=== PATIENT | female | born 1985 | race Caucasian/White ===

== ENCOUNTER 2021-12-18 11:01 | Observation (INO) | payer OTHER, SELFPAY ==
[2021-12-18] VITALS (14 sets, daily range): BP systolic 111–126; BP diastolic 65–73; PULSE 85–100; TEMP 36.2; O2SAT 97–100; BMI 34.0
--- NOTE | 2021-12-18 11:46 | OBADM ---
This patient, Elza Ritchie, admitted to the OB room 115 for observation. Patient/family oriented to hospital policies and general routines including ID bracelet, bed and alarms, visiting hours, pain management, procedures, bathroom and other care routines, personal items, smoking policy, room service/diet, and visiting hours. Patient/Family are encouraged to report perceived risks to care and to ask questions if they do not understand what they are told or what they should do.
[2021-12-18] MEDS: FAMOTIDINE 20 MG TABLET PO (12:37)
--- NOTE | 2022-01-01 13:31 | PM.OBTRLD ---
OB - Triage/Final Diagnosis Visit Information Comments/Additional reasons for admission: I have assessed the risk for this patient, Elza Ritchie, and determined that she would benefit from observation care. Final Diagnosis (1) False labor: Code(s): O47.9 - False labor, unspecified Status: Acute
== END 2021-12-18 13:22 | disposition home or self-care (01) ==
PROVIDERS: Admitting Provider Obstetrics & Gynecology; Visit Provider Obstetrics & Gynecology
DX: O47.9 False labor, unspecified (principal); Z3A.00 Weeks of gestation of pregnancy not specified
CPT/HCPCS: A9270; G0378; G0379

== ENCOUNTER 2022-01-06 16:20 | Outpatient (RCR) | payer OTHER, SELFPAY ==
--- NOTE | ~2022-01-06 | US_ITS ---
EXAMINATION: US OB BPP wo non-stress DATE: 01/06/2022 18:33 INDICATION: Nonreactive stress test. TECHNIQUE: Real-time ultrasound of the pelvis was performed. COMPARISON: None. FINDINGS: There is a single living fetus in vertex presentation, longitudinal lie. The placenta is posterior. heart rate is 143 beats per minute (bpm). The amniotic fluid index is 15.1 cm, which is normal. ] Biophysical profile performed by the technologist: breathing (30 sec sustained breathing in 30 minutes): 2 out of 2 movement (3 gross body movements in 30 minutes: 2 out of 2 tone (one episode of epszcik-hmlfkhiap-wizpjog limb movement): 2 out of 2 Amniotic fluid pocket (2 cm): 2 out of 2 Total score: 8 out of 8 IMPRESSION: 1. Single living fetus in vertex presentation.] 2. Amniotic fluid index 15.1 cm. 3. Biophysical profile 8 out of 8. Reviewed, dictated and finalized at location K.
--- NOTE | 2022-01-06 17:26 | PC.NURSE ---
Dr. Aggarwal notified on admission and assessment. BPP ordered.
[2022-01-06 18:00] VITALS: BP 127/67; PULSE 96
== END 2022-02-21 14:51 | disposition home or self-care (01) ==
LOC: ANHOBOP 16:20
PROVIDERS: PCP Emergency Medicine; Visit Provider Obstetrics & Gynecology
DX: O26.893 Other specified pregnancy related conditions, third trimester (principal); Z3A.34 34 weeks gestation of pregnancy
CPT/HCPCS: 59025; 76819

== ENCOUNTER 2022-01-10 19:12 | Outpatient (CLI) | payer OTHER, SELFPAY ==
[2022-01-10 19:33] VITALS: BP 130/76; PULSE 93
[2022-01-10 19:45] VITALS: BP 127/75; PULSE 88
[2022-01-10 19:47] LABS: Basophils Percent Auto 0.2 % (0.2-1.2); Hematocrit 34.4 % (37.0-47.0); Hemoglobin 11.7 g/dL (12.0-15.0); Immature Granulocyte Absolute 0.05 K/mm3 (0.00-0.031); Immature Granulocyte Percent A 0.4 % (0-0.5); Lymphocytes Absolute Auto 4.01 K/mm3 (0.9-3.2); Lymphocytes Percent Auto 32.5 % (18.3-44.2); Mean Corpuscular Hemoglobin 28.3 pg (26-34); Mean Corpuscular Volume 83.3 fl (80-100); Mean Platelet Volume 8.8 fl (7.4-10.4); Monocytes Absolute Auto 0.8 K/mm3 (0.1-0.6); Monocytes Percent Auto 6.8 % (2.6-8.5); Neutrophils Absolute Auto 7.4 K/mm3 (1.3-6.7); Neutrophils Percent Auto 60.1 % (45.5-73.1); Platelet Count Result 293 k/mm3 (150-375); Red Blood Count 4.13 M/mm3 (4.2-5.4); Red Cell Distribution Width 13.5 % (11.5-14.5); White Blood Count 12.3 K/mm3 (4.5-10.0)
[2022-01-10 19:48] LABS: Appearance Urine Clear (Clear); Bilirubin Urine Negative (Negative); Blood Urine Negative (Negative); Color Urine Yellow (Yellow); Glucose Urine UA Negative (Negative); Ketones Urine Negative (Negative); Leukocyte Esterase Ur Negative LEU/UL (NEGATIVE); Nitrate Urine Negative (Negative); Protein Urine 1+ mg/dL (Negative); Specific Grav Ur >= 1.030 (1.001-1.035); Urobilinogen Urine 0.2 mg/dL (<2.0)
[2022-01-10 19:58] LABS: Bacteria Urine Trace /hpf; Calcium Oxalate Crystals Urine Present /hpf; Mucus Urine Heavy /lpf; Squamous Epithelial Cell Urine Occasional /hpf (Few)
[2022-01-10 19:59] LABS: Add Urine Microscopic? YES
[2022-01-10 20:00] VITALS: BP 123/70; PULSE 82
[2022-01-10 20:03] LABS: Alanine Aminotransferase 11 U/L (6-35); Albumin Level 3.3 g/dL (3.5-5.1); Alkaline Phosphatase 151 U/L (38-126); Anion Gap 6 mmol/L (8-16); Aspartate Amino Transferase 17 U/L (14-36); Bilirubin,Total 0.7 mg/dL (0.2-1.3); Blood Urea Nitrogen 5 mg/dL (7-17); Calcium 8.3 mg/dL (8.4-10.2); Carbon Dioxide 19 mmol/L (22-30); Chloride 108 mmol/L (98-107); Estimated Glomerular Filt Rate > 60; Glucose 87 mg/dL (65-110); Potassium 3.8 mmol/L (3.4-5.0); Sodium 133 mmol/L (137-145); Uric Acid 3.3 mg/dL (2.5-7.5)
[2022-01-10 20:15] VITALS: BP 131/75; PULSE 85
[2022-01-10] MEDS: diphenhydrAMINE HCl CAP 25 MG CAPSULE PO (21:04)
[2022-01-10] MEDS: METOCLOPRAMIDE HCL 10 MG TABLET PO (21:04)
[2022-01-11 00:01] LABS: Creatinine Urine 291.3 mg/dL
[2022-01-11 00:03] LABS: Total Protein Urine Random < 5 mg/dL; Ur Ttl Prot Creatinine Ratio < 0.02 mg/mg (0-0.20)
== END 2022-01-10 21:15 | disposition home or self-care (01) ==
LOC: ANHOBOP 19:16 → ANHOBPP 19:19
PROVIDERS: PCP Emergency Medicine; Visit Provider Obstetrics & Gynecology
DX: O13.9 Gestational [pregnancy-induced] hypertension without significant proteinuria, unspecified trimester (principal); Z3A.00 Weeks of gestation of pregnancy not specified
CPT/HCPCS: 36415; 80053; 81001; 82570; 84156; 84550; 85025; 87086; 99199; A9270

== ENCOUNTER 2022-02-10 13:56 | Outpatient (CLI) | payer OTHER, SELFPAY ==
[2022-02-10 14:15] LABS: Hemoglobin 11.6 g/dL (12.0-15.0); Mean Corpuscular HGB Conc 33.1 g/dl (32-36); Mean Corpuscular Hemoglobin 27.4 pg (26-34); Mean Corpuscular Volume 82.7 fl (80-100); Mean Platelet Volume 9.1 fl (7.4-10.4); Platelet Count Result 270 k/mm3 (150-375); Red Blood Count 4.23 M/mm3 (4.2-5.4); Red Cell Distribution Width 13.4 % (11.5-14.5); White Blood Count 9.9 K/mm3 (4.5-10.0)
[2022-02-11 06:12] LABS: Rapid Plasma Reagin Non-Reactive (NonReactive)
== END 2022-02-10 13:57 | disposition home or self-care (01) ==
LOC: ANHLAB 13:59
PROVIDERS: PCP Emergency Medicine; Visit Provider Obstetrics & Gynecology
DX: Z01.818 Encounter for other preprocedural examination (principal)
CPT/HCPCS: 36415; 85027; 86592; 86850; 86900; 86901

== ENCOUNTER 2022-02-11 05:35 | Inpatient (IN) | payer OTHER, SELFPAY ==
--- NOTE | 2022-02-04 14:57 | PC.NURSE ---
Verified with OR schedule and patient --C/S on 02/11/22 at 1200 Patient given requisition for lab draw on 02/10/22
--- NOTE | 2022-02-10 13:43 | WPDANESEPPF ---
Anes - Initial Pre Proc Eval Procedure: Operation Date: 02/11/22 12:00 Proposed Procedures p Repeat Section - Vinnie Coyne MD Date/Time: 02/10/22 13:43 Surgeon: Vinnie Coyne MD Pre Op Diagnosis: Repeat C Section/ Preadmit Patient Data Age: 36 Gender: F Height: Weight: Allergies Allergy/AdvReac Type Severity Reaction Status Date / Time morphine Allergy Mild SEVERE Verified 01/10/22 20:45 ITCHING AND RED RASH nitrofurantoin Allergy Unknown Rash Verified 01/10/22 20:45 [place] Allergy Mild Itching Uncoded 02/04/22 14:40 Dried Fruit Allergy Unknown Itching Uncoded 01/10/22 20:45 Home Medications Medication Instructions Recorded Confirmed Type calcium carbonate 200 mg calcium 200 mg PO QID PRN Heartburn 12/18/21 01/10/22 History (500 mg) chewable tablet (Tums) vit no.95-ferrous 1 tablet PO DAILY 12/18/21 01/10/22 History fumarate 28 mg-folic acid 800 mcg tablet () propylthiouracil 50 mg tablet 100 mg PO DAILY 12/18/21 01/10/22 History Patient hx anesthesia problems: none Family hx anesthesia problems: none Results Review: All pre-operative results and documents have been reviewed as part of the pre-operative evaluation. [facility] Past Medical History Medical History (Updated 02/11/22 @ 06:50 by Navin Navas DO) Graves' disease History of atrial fibrillation 1 episode for 2 days due to hyperthyroidism Hyperthyroidism Family History Family History (Updated 02/04/22 @ 14:41 by Helen Mcneill RN) Mother Family history of cardiovascular disease Diabetes mellitus Family history of arthritis Family history of thyroid disease Hypertension Adrenal gland cancer Father Diabetes mellitus Cerebrovascular accident Grandparent Acute myocardial infarction, Onset Age: 74 Cerebrovascular accident, Onset Age: 75 Depression Social History Social History (System 12/18/21 @ 15:08 by Jovana Barrientos) Smoking status: Never smoker Second hand tobacco smoke exposure: No Alcohol intake: current Substance use: never Spiritual care concerns: No Anes - Eval Final PreProcedure Day of Procedure 02/10/22 13:43 Patient weight: obese Heart: regular rate and rhythm Lungs: clear to auscultation and normal air movement Airway: Mallampati scale class II Neurological: alert and oriented Last oral intake: >/= 8 hours ASA classification: III Emergent: no Anesthetic plan: proceed Anesthesia type and monitoring: regional spinal and standard monitoring Results Review: All pre-operative results and documents have been reviewed as part of the pre-operative evaluation. Informed Consent: The patient's anesthetic plan and its attendant risks and benefits were discussed with the patient/family/POA. Questions were solicited and answers provided to the satisfaction of the patient/family/POA.
[2022-02-11] VITALS (64 sets, daily range): BP systolic 119–170; BP diastolic 55–104; PULSE 72–103; RESP 11–20; TEMP 36.1–37.1; O2SAT 97–100; BMI 35.1
[2022-02-11] MEDS: LACTATED RINGERS 1,000 ML 125 ML IV CONT ×3 (06:21→09:11)
--- NOTE | 2022-02-11 07:29 | PM.IMHP ---
H&P: HPI History of Present Illness Date/Time: 02/11/22 07:29 Chief Complaint: Repeat c section Narrative: 36 y/o at 39 5/7 weeks here for repeat . Hyperthyroidism, seen by MFM and endocrinology. GBS neg. Review of Systems Review of Systems: All systems reviewed & are unremarkable except as noted in HPI and below PMFSH Past Medical History Medical History Graves' disease History of atrial fibrillation 1 episode for 2 days due to hyperthyroidism Hyperthyroidism Surgical History Surgical History History of delivery Family History Family History Mother Family history of cardiovascular disease Diabetes mellitus Family history of arthritis Family history of thyroid disease Hypertension Adrenal gland cancer Father Diabetes mellitus Cerebrovascular accident Grandparent Acute myocardial infarction, Onset Age: 74 Cerebrovascular accident, Onset Age: 75 Depression Social History Social History Smoking status: Never smoker Second hand tobacco smoke exposure: No Alcohol intake: current Substance use: never Spiritual care concerns: No Meds Home Medications and Allergies Home Medications Medication Instructions Recorded Confirmed Type calcium carbonate 200 mg calcium 200 mg PO QID PRN Heartburn 12/18/21 02/11/22 History (500 mg) chewable tablet (Tums) vit no.95-ferrous 1 tablet PO DAILY 12/18/21 02/11/22 History fumarate 28 mg-folic acid 800 mcg tablet () propylthiouracil 50 mg tablet 100 mg PO DAILY 12/18/21 02/11/22 History Allergies Allergy/AdvReac Type Severity Reaction Status Date / Time morphine Allergy Mild SEVERE Verified 01/10/22 20:45 ITCHING AND RED RASH nitrofurantoin Allergy Unknown Rash Verified 01/10/22 20:45 [place] Allergy Mild Itching Uncoded 02/04/22 14:40 Dried Fruit Allergy Unknown Itching Uncoded 01/10/22 20:45 Vital Signs Vital Signs - 24 hr 02/11/22 06:31 02/11/22 06:46 02/11/22 07:01 Pulse Rate 85 92 93 Blood Pressure 138/68 126/70 132/71 Exam Const: Orientation/consciousness: patient oriented x3 Other: Well-developed, well-nourished female in no acute distress. Neck: Thyroid: thyroid normal Lymphatic: no lymphadenopathy noted (in neck, axilla or inguinal nodes) Resp: Effort & Inspection: normal respiratory effort Auscultation: clear to auscultation bilaterally Cardio: Rate: regular rate Rhythm: regular rhythm Heart sounds: S1 normal heart sound present and S2 normal heart sound present GI: Other: ABD: Soft, gravid, nontender, nondistended. No guarding or rebound tenderness. No hepatosplenomegaly. NST reactive. TOCO: no contractions. : General: Yes no CVA tenderness Other: Cervix closed, thick Back/Spine/Pelvis: Back: no CVA tenderness Skin: General skin exam: normal color and no rashes or lesions noted Neuro: General: patient oriented x3 Extrem: Other: Extremities: nontender with no edema Psych: Mental Status: mental status grossly normal Affect: normal affect Assessment and Plan Assessment and plan (1) History of delivery: Code(s): Z98.891 - History of uterine scar from previous surgery Status: Acute Assessment and Plan: A: IUP at 39 5/7 weeks with prior x 2, desiring repeat. P: Offered repeat . She understands risks of surgery to include risks of anesthesia, risks of pain, infection, bleeding, blood products, thromboembolic phenomena and damage to adjacent structures such as bowel, bladder, ureters, blood vessels and nerves. She understands all these risks and elects to proceed with surgery.
[2022-02-11] MEDS: ceFAZolin 2 GM/D5W 50 ML 2 GM/50 ML BAG IVPB (07:33)
--- NOTE | 2022-02-11 07:34 | WPDHPUPDATE1 ---
History and Physical Update Update Date/Time: 02/11/22 07:34 History and Physical has been reviewed, including an updated exam of the patient. There are NO changes in the patient's condition. Risks, benefits, and alternatives have been discussed and questions answered. Patient agrees to proceed with procedure.
--- NOTE | 2022-02-11 08:56 | PM.OBPRVD ---
OB - Delivery Note Procedure Delivery date: 02/11/22 Procedure: Procedures Operation Date: 02/11/22 07:30 Actual Procedure Side Surgeon p Repeat Section Vinnie Coyne MD Delivery monitor: External FHT and External Uterine Route of delivery: (Repeat LTCS) Specimen: Yes (cord blood) Quantitative Blood Loss (ml): 385 Anesthesia type: Spinal Disposition: PACU Complications: None Narrative: The patient was taken to the operating room where she was prepared and draped in the usual sterile fashion in dorsal supine position with a leftward tilt. She received cefazolin preoperatively. Spinal anesthesia was found to be adequate. A Pfannenstiel skin incision was made along the previous scar line and was carried through to the underlying layer of the fascia. The fascia was incised in the midline and the incision was extended laterally. The fascia was dissected free of the underlying rectus muscles. The rectus muscles were in the midline. The peritoneum was identified, tented up and entered sharply. The peritoneal incision was extended superiorly and inferiorly with good visualization of the bladder. The bladder blade was placed. The vesicouterine peritoneum was identified, tented up and entered sharply. The incision was extended laterally and the bladder flap was developed. The bladder blade was replaced. The uterus was then incised sharply in a transverse fashion along the lower uterine segment. The incision was extended laterally. The infant's head was delivered atraumatically to the sterile field, followed by the body. The nose and mouth were bulb suctioned. After a delay, the cord was clamped and cut. The infant was handed off the field. Cord blood was collected. The placenta was removed manually and was passed off the field. The uterus was exteriorized and cleared of all clots and debris. The uterine incision was reapproximated using 0 Monocryl in a running, locked fashion. Excellent hemostasis resulted as did excellent reapproximation of the normal anatomy. The uterus was returned the abdomen. The pelvis was irrigated copiously with warmed normal saline. Rigorous hemostasis was assured. The fascial layer was reapproximated using 0 Vicryl in a running fashion. The skin was closed with a running, subcuticular stitch of 4 0 Vicryl. Dermaflex was applied externally. Sponge, lap, needle and instrument counts were correct. The patient was taken to the recovery room in stable condition. The infant went to the nursery in stable condition. I was present and scrubbed the entire procedure. Baby Date of : 02/11/22 Time of : 07:54 Weeks of gestation at delivery: 39 Infant gender: Male Weight (pounds): 8 Weight (ounces): 10 presentation: vertex Placenta delivery description: Manual Removal and Normal Configuration Cord Vessel Description: 3 Vessels and Delayed Cord Clamping score one minute: 9 score five minutes: 9
--- NOTE | 2022-02-11 08:57 | PM.OBDSVD ---
DS: Admitting Diagnosis Discharge Date 02/14/22 Admitting Diagnosis IUP at 39 5/7 weeks Prior deliveries Hyperthyroidism DS: Discharge Diagnosis Discharge Diagnosis (1) delivery delivered: Code(s): O82 - Encounter for delivery without indication Status: Acute (2) Hyperthyroidism affecting : Code(s): O99.280 - Endocrine, nutritional and metabolic diseases complicating , unspecified trimester; E05.90 - Thyrotoxicosis, unspecified without thyrotoxic crisis or storm Status: Acute OB - DS: Summary OB Procedures : None OB Procedures Intrapartum: OB Procedures: : None Peripartum Data Procedures: Procedures Operation Date: 02/11/22 07:30 Actual Procedure Side Surgeon p Repeat Section Vinnie Coyne MD Time Spent with Patient Time attestation: Total time spent providing and/or coordinating discharge services: DS: Data Data Completed and Pending Labs on day of discharge: Labs from last 24 hours 02/11/22 06:08 HIV 1&2 Ab/P24 Ag 4thGn Pending Discharge Plan Discharge Attending physician on discharge: Vinnie Coyne Discharging Clinician: Vinnie Coyne Patient Disposition: Home, Self-Care Activity: may shower, may drive after 2 weeks and pelvic rest Diet: regular Wound Care Instructions: incision open to air Discharge Instructions: Call or return if temperature above 100.4? F, increased abdominal pain, increased vaginal bleeding or any new problems. Stand Alone Forms: General Discharge Information Follow-up/Referrals: Vinnie Coyne MD [Physician] - 4 Weeks Discharge Medications: New ibuprofen 600 mg tablet 600 mg PO Q6H PRN (Reason: cramps) Qty: 30 0RF hydrocodone-acetaminophen 5-325 mg tablet 1 - 2 tablet PO Q6H PRN (Reason: pain) Qty: 30 0RF Continued propylthiouracil 50 mg tablet 100 mg PO DAILY calcium carbonate [Tums] 200 mg calcium (500 mg) Tablet,Chewable 200 mg PO QID PRN (Reason: Heartburn) PNV cmb#95-ferrous fumarate-FA [] 28 mg iron- 800 mcg Tablet 1 tablet PO DAILY Date of admission: 02/11/22 05:35 Primary Care Provider: Skylar,David Beltrán Admitting Provider: Vinnie Coyne Attending physician on admission: Vinine Coyne Condition: Stable
[2022-02-11] MEDS: diphenhydrAMINE HCl INJ 50 MG/ML VIAL 25 MG IV PUSH ×3 (09:49→20:22)
[2022-02-11] MEDS: OXYTOCIN 30 UNITS/NS 500 ML 30 UNITS/500 ML BAG 125 UNITS IV CONT (10:22)
--- NOTE | 2022-02-11 10:35 | PC.NURSE ---
PT arrived on unit via stretcher accompanied by fob and infant and taken to room 287. PT oriented to room 287 and surroundings. PT introductions made and plan of care discussed per post op c section, pain management, breast feeding, daily care activities. PT received such instructions this shift per one to one to discussion, mom baby care guide and demonstrations. PT and fob both received instructions and no barriers to learning identified at this time. Welcome packet reviewed and discussed. PT verbalized understanding of such care.
--- NOTE | 2022-02-11 13:52 | PC.NURSE ---
[id number] Introductions were made, then consulted with patient to assess needs related to . Mother led the conversation with her?plans to feed?her infant and the?experience so far. Mother states infant is not waking up and RN encouraged undressing infant to stimulate for . Resources provided for inpatient and outpatient services using a resource guide and mom/baby guide. Mother voiced understanding of information and will call if there is a request for assistance. Reported to primary RN. [phone] Mother is able to independently latch infant with appropriate positioning/alignment. She denies any nipple discomfort and is responsively on the right breast using cradle positioning. Questions answered about the umbilical care and mother voiced understanding how to watch and listen for swallowing at the breast. Infant has 2:1 and 3:1 suck/swallow ratios and is with an optimal latch. Mother denies any additional education at this time. Mother is encouraged to call for assistance if her infant doesn?t latch or there is discomfort with latching. Mother voiced understanding of information shared and mom and baby guide reviewed for additional resource information . Reported to the primary RN.
[2022-02-11] MEDS: DEXTROSE 5%/0.45% SOD CHL 1,000 ML 125 ML IV CONT (14:10)
[2022-02-11] MEDS: SIMETHICONE 80 MG TAB.CHEW PO ×2 (14:30→17:23)
[2022-02-11] MEDS: KETOROLAC 30 MG/ML VIAL (*BKC) IV PUSH ×2 (14:31→20:22)
[2022-02-11] MEDS: LANOLIN (LANSINOH) 7.5 GM CREAM 1 APPLIC TOPICAL (15:16)
[2022-02-11] MEDS: DOCUSATE SODIUM 100 MG CAPSULE PO (17:23)
[2022-02-11] MEDS: HYDROcodone/acetaminophen (*CRX) 5-325 MG TABLET 1 TAB PO ×2 (17:23→20:21)
[2022-02-12] MEDS: HYDROcodone/acetaminophen (*CRX) 5-325 MG TABLET 1 TAB PO (02:41)
[2022-02-12] MEDS: IBUPROFEN 600 MG TABLET PO ×4 (02:41→20:19)
[2022-02-12 04:10] VITALS: BP 120/62; PULSE 80; RESP 18; TEMP 36.9
[2022-02-12] MEDS: HYDROcodone/acetaminophen (*CRX) 10-325 MG TABLET 1 TAB PO ×6 (05:35→23:29)
[2022-02-12 06:04] LABS: Basophils Percent Auto 0.2 % (0.2-1.2); Hematocrit 30.8 % (37.0-47.0); Hemoglobin 10.2 g/dL (12.0-15.0); Immature Granulocyte Absolute 0.05 K/mm3 (0.00-0.031); Immature Granulocyte Percent A 0.4 % (0-0.5); Lymphocytes Absolute Auto 3.55 K/mm3 (0.9-3.2); Lymphocytes Percent Auto 25.3 % (18.3-44.2); Mean Corpuscular HGB Conc 33.1 g/dl (32-36); Mean Corpuscular Hemoglobin 27.6 pg (26-34); Mean Corpuscular Volume 83.2 fl (80-100); Mean Platelet Volume 9.7 fl (7.4-10.4); Monocytes Absolute Auto 0.9 K/mm3 (0.1-0.6); Monocytes Percent Auto 6.6 % (2.6-8.5); Neutrophils Absolute Auto 9.5 K/mm3 (1.3-6.7); Neutrophils Percent Auto 67.5 % (45.5-73.1); Platelet Count Result 243 k/mm3 (150-375); Red Cell Distribution Width 13.6 % (11.5-14.5)
--- NOTE | 2022-02-12 07:00 | PC.NURSE ---
PT introductions made and plan of care discussed per post op c section, pain management, breast feeding, daily care activities. PT received such instructions this shift per one to one to discussion, mom baby care guide and demonstrations. PT and fob both received instructions and no barriers to learning identified at this time. Welcome packet reviewed and discussed. PT verbalized understanding of such care.
[2022-02-12 07:45] VITALS: BP 128/63; PULSE 80; RESP 18; TEMP 36.7; O2SAT 100
[2022-02-12 08:15] VITALS: PULSE 88; RESP 16; O2SAT 100
[2022-02-12] MEDS: DOCUSATE SODIUM 100 MG CAPSULE PO ×2 (08:17→17:41)
[2022-02-12] MEDS: MULTIVIT/MIN/PREN/FOL AC/IRON TABLET 1 TAB PO (08:17)
[2022-02-12] MEDS: propylthiouraciL 50 MG TABLET 100 MG PO (08:17)
[2022-02-12] MEDS: SIMETHICONE 80 MG TAB.CHEW PO ×3 (08:18→17:41)
[2022-02-12 12:07] VITALS: BP 120/55; PULSE 88; RESP 16; TEMP 36.6; O2SAT 100
--- NOTE | 2022-02-12 12:58 | WPDANLDPN2 ---
Anes-Prog Note L&D Date/Time: 02/12/22 12:58 Comfortable throughout: section Neuraxial method: spinal Epidural/Spinal procedure site: clean & non-tender Neuro status: Neuro function grossly intact. Cardiovascular status: normal Respiratory status: normal Airway patency: baseline Mental status: baseline Post-Op hydration status: normal Vital Signs: Last Vital Signs Temp 98 F 02/12/22 12:07 Pulse 88 02/12/22 12:07 Resp 16 02/12/22 12:07 BP 120/55 L 02/12/22 12:07 Pulse Ox 100 02/12/22 12:07 O2 Del Method Room Air 02/11/22 20:20 Pain score (VAS): 0/10 I/O: Intake & Output 02/11/22 02/12/22 02/12/22 23:59 07:59 15:59 Intake Total 3100 450 300 Output Total 1750 550 Balance 1350 -100 300 Post-procedural complaints: none Patient feedback: Patient satisfied with anesthetic care.
--- NOTE | 2022-02-12 12:59 | WPDANLDNPN2 ---
Anes-Prog Note L&D-Neuraxial Date/Time: 02/12/22 12:59 Neuraxial medications: intrathecal PF morphine Opiod-related complaints: none Patient feedback: Patient satisfied with post-operative pain management.
--- NOTE | 2022-02-12 14:51 | PM.OBPNVD ---
OB - PN: Subj Subjective Date/time seen: 02/12/22 14:51 Narrative: Pain OK. Tolerating diet. Would like circumcision for son. OB - PN: Obj Data Labs CBC & Chem 7: 02/12/22 04:16 Labs: Laboratory Results - last 24 hr 02/12/22 04:16 WBC 14.0 H RBC 3.70 L Hgb 10.2 L Hct 30.8 L MCV 83.2 MCH 27.6 MCHC 33.1 RDW 13.6 Plt Count 243 MPV 9.7 Immature Gran % (Auto) 0.4 Neut % (Auto) 67.5 Lymph % (Auto) 25.3 [place] % (Auto) 6.6 Eos % (Auto) 0.0 Baso % (Auto) 0.2 Lymph # (Auto) 3.55 H [place] # (Auto) 0.9 H Eos # (Auto) 0.0 Baso # (Auto) 0.0 Abs Immat Gran (auto) 0.05 H Absolute Neuts (auto) 9.5 H Absolute Nucleated RBC 0.0 Nucleated RBC % 0.0 OB - PN A/P Plan Comments: A: POD#1, doing well. P: Routine care. Reviewed circ. Exam Narrative: AVSS I/O OK ABD soft, nontender, fundus firm. Incision c/d/i. EXT nontender
[2022-02-12 20:20] VITALS: BP 138/66; PULSE 86; RESP 18; TEMP 36.4
[2022-02-13] MEDS: IBUPROFEN 600 MG TABLET PO ×3 (02:21→16:26)
[2022-02-13] MEDS: HYDROcodone/acetaminophen (*CRX) 10-325 MG TABLET 1 TAB PO ×3 (02:22→12:30)
[2022-02-13 08:10] VITALS: BP 133/75; PULSE 75; RESP 18; TEMP 36.9; O2SAT 100
[2022-02-13] MEDS: MULTIVIT/MIN/PREN/FOL AC/IRON TABLET 1 TAB PO (08:46)
[2022-02-13] MEDS: DOCUSATE SODIUM 100 MG CAPSULE PO ×2 (08:46→16:26)
[2022-02-13] MEDS: propylthiouraciL 50 MG TABLET 100 MG PO (08:47)
[2022-02-13] MEDS: HYDROcodone/acetaminophen (*CRX) 5-325 MG TABLET 1 TAB PO ×3 (08:48→21:02)
--- NOTE | 2022-02-13 08:54 | PM.OBPNVD ---
OB - PN: Subj Subjective Date/time seen: 02/13/22 08:54 Narrative: Pain OK. Tolerating diet. OB - PN: Obj Data Labs CBC & Chem 7: 02/12/22 04:16 OB - PN A/P Plan Comments: A: POD#2, doing well. P: Routine care. Plan home tomorrow. Exam Narrative: AVSS I/O OK ABD soft, nontender, fundus firm. Incision c/d/i. EXT nontender
--- NOTE | 2022-02-13 12:38 | PC.NURSE ---
This morning's report from the primary RN was latches good and effectively breastfeeds and a feeding today has been assessed. is being supplemented and phototherapy will be initiated.
[2022-02-13 16:35] LABS: HIV 1 2 Ag Ab 4th Gen w Rflxs Non-reactive (Non-reactive)
[2022-02-13] MEDS: SIMETHICONE 80 MG TAB.CHEW PO (17:40)
[2022-02-13 20:45] VITALS: BP 144/74; PULSE 81; RESP 18; TEMP 36.9; O2SAT 98
[2022-02-14] MEDS: HYDROcodone/acetaminophen (*CRX) 10-325 MG TABLET 1 TAB PO (01:12)
[2022-02-14] MEDS: MULTIVIT/MIN/PREN/FOL AC/IRON TABLET 1 TAB PO (07:05)
[2022-02-14] MEDS: DOCUSATE SODIUM 100 MG CAPSULE PO (07:05)
[2022-02-14] MEDS: propylthiouraciL 50 MG TABLET 100 MG PO (07:05)
[2022-02-14] MEDS: IBUPROFEN 600 MG TABLET PO ×2 (07:06→12:52)
[2022-02-14] MEDS: HYDROcodone/acetaminophen (*CRX) 5-325 MG TABLET 1 TAB PO ×2 (07:06→12:52)
[2022-02-14 08:15] VITALS: BP 127/69; PULSE 78; RESP 18; TEMP 36.8; O2SAT 99
--- NOTE | 2022-02-14 13:17 | PC.NURSE ---
Patient viewed the discharge video Mother & Baby Care, The First Two Weeks . Patient was given the opportunity and encouraged to ask questions. Patient verbalized understanding of information shared and has been given the mother/baby guide for home reference.
[2022-02-15 11:48] VITALS: BP 137/77; PULSE 78; RESP 20; TEMP 36.8; O2SAT 99
== END 2022-02-14 14:37 | disposition home or self-care (01) | DRG 788 ==
LOC: ANHOB2 02-14 11:37 → ANHLDR 02-17 08:52
PROVIDERS: Admitting Provider Obstetrics & Gynecology; PCP Emergency Medicine; Visit Provider Student in an Organized Health Care Education/Training Program
PROC: 10D00Z1 Extraction of Products of Conception, Low, Open Approach (ICD-10-PCS; CPT 59514; principal; 2022-02-11 12:00)
DX: O34.211 Maternal care for low transverse scar from previous cesarean delivery (principal); Z37.0 Single live birth; Z3A.39 39 weeks gestation of pregnancy; O99.284 Endocrine, nutritional and metabolic diseases complicating childbirth; E05.00 Thyrotoxicosis with diffuse goiter without thyrotoxic crisis or storm
CPT/HCPCS: 36415; 85025; 85027; 86592; 86703; 86850; 86900; 86901; 87389; A9270; G0432; J0131; J0690; J1200; J1885; J2274; J2405; J2590; J7120

== ENCOUNTER 2022-05-22 16:18 | Emergency (ER) | payer OTHER, SELFPAY ==
[2022-05-22 16:25] VITALS: BP 133/81; PULSE 81; RESP 20; TEMP 37.1; O2SAT 100
--- NOTE | 2022-05-22 16:26 | ED.URI ---
HPI - URI/Sore Throat General Chief Complaint: Upper Respiratory Infection Stated Complaint: Sore Throat,Cough Time Seen by Provider: 05/22/22 16:26 Source: patient, RN notes reviewed and old records reviewed Mode of arrival: ambulatory Limitations: no limitations History of Present Illness HPI Narrative: 36-year-old female presents to the [facility] with complaints of sore throat and fever of 101 intermittently since Thursday, 3 days. Has been taking Motrin and Tylenol. reports even though she has had her tonsils removed she has a history of strep throat Related Data Home Medications Medication Instructions Recorded Confirmed levonorgestrel 20 mcg/24 hours (8 See Rx Instructions .Route .COMPLEX 05/22/22 05/22/22 yrs) 52 mg intrauterine device (Mirena) Allergies Allergy/AdvReac Type Severity Reaction Status Date / Time morphine Allergy Mild SEVERE Verified 05/22/22 16:35 ITCHING AND RED RASH nitrofurantoin Allergy Unknown Rash Verified 05/22/22 16:35 [place] Tree Allergy Mild Itching Uncoded 05/22/22 16:35 Dried Fruit Allergy Unknown Itching Uncoded 05/22/22 16:35 Review of Systems Review of Systems: All systems reviewed & are unremarkable except as noted in HPI and below Constitutional: Constitutional: Reports as per HPI, Denies chills and Reports fever(s) Eyes: Eyes: Reports no additional eye complaints ENT: Reports as per HPI and Reports sore throat Cardiovascular: Cardiovascular: Reports no additional cardiovascular complaints Respiratory: Respiratory: Reports as per HPI, Denies chest congestion, Reports cough, Denies dyspnea and Denies wheezing Gastrointestinal: Gastrointestinal: Reports no additional gastrointestinal complaints Musculoskeletal: Musculoskeletal: Reports no additional musculoskeletal complaints Integumentary/Breasts: Skin/Breast: Reports system reviewed and no additional complaints, except as docu Neurologic: Reports system reviewed and no additional complaints, except as documented Psychiatric: Psychiatric: Reports no additional psychiatric complaints Allergic/Immunologic: Allergic/Immunologic: Reports no additional allergic/immunologic complaints [facility] Past Medical History Medical History (Updated 05/22/22 @ 16:46 by Brandy Roque APRN) Graves' disease History of atrial fibrillation 1 episode .2020 for 2 days due to hyperthyroidism Hyperthyroidism Surgical History Surgical History (Updated 05/22/22 @ 16:34 by Brandy Roque APRN) History of delivery History of tonsillectomy age 13 Family History Family History Mother Family history of cardiovascular disease Diabetes mellitus Family history of arthritis Family history of thyroid disease Hypertension Adrenal gland cancer Father Diabetes mellitus Cerebrovascular accident Grandparent Acute myocardial infarction, Onset Age: 74 Cerebrovascular accident, Onset Age: 75 Depression Social History Social History Smoking status: Never smoker Second hand tobacco smoke exposure: No Alcohol intake: current Substance use: never Spiritual care concerns: No Comments At the time of my signature, I reviewed and agree with the nursing past medical, surgical, social, and family history. There is no relevant family history pertinent to the patient complaint. Exam Const: General: healthy appearing, comfortable, no acute distress, well developed, alert and well nourished Nutritional Appearance: well nourished Orientation/consciousness: patient oriented x3 Limitations: no limitations HENMT: Head: normal to inspection Ears: external ears normal, TM's normal bilaterally and EAC's normal Face/Nose/Sinus: Normal external nose present and Normal nares present Face and sinus: normal facial exam and sinuses nontender Mouth: Yes Normal oral and pal
== END 2022-05-22 16:50 | disposition home or self-care (01) ==
PROVIDERS: Emergency Provider Nurse Practitioner; PCP Emergency Medicine
DX: J02.0 Streptococcal pharyngitis (principal); E05.00 Thyrotoxicosis with diffuse goiter without thyrotoxic crisis or storm; I48.91 Unspecified atrial fibrillation
CPT/HCPCS: 87804; 87880; 99213; G0463

== ENCOUNTER 2024-03-20 16:51 | Emergency (ER) | payer OTHER, SELFPAY ==
--- NOTE | ~2024-03-20 | XR_ITS ---
XR ribs RT 2V DATE: 03/20/2024 17:34 INDICATION: Lower lateral right rib pain. No known injury. TECHNIQUE: 3 views COMPARISON: None FINDINGS: No right rib fracture or bone destruction. No right pulmonary infiltrate, pleural effusion or pneumothorax. IMPRESSION: Negative Reviewed, dictated and finalized at location A. IMPRESSION: Negative
[2024-03-20 17:02] VITALS: BP 132/75; PULSE 71; RESP 18; TEMP 36.6; O2SAT 100
--- NOTE | 2024-03-20 17:20 | ED.CHESTPAIN ---
HPI - Chest Pain General Chief Complaint: Back Pain/Injury Stated Complaint: pain in rt rib cage Time Seen by Provider: 03/20/24 16:55 Source: patient Mode of arrival: ambulatory Limitations: no limitations History of Present Illness HPI narrative: Elza is a 38-year-old female patient presenting to the clinic today with complaints of pain in the right rib pain x1 day. She reports no known injury. Denies any coughing or URI symptoms. Denies any fever, denies any shortness of breath or chest congestion. Denies rash. Related Data Home Medications Medication Instructions Recorded Confirmed levonorgestrel 21 mcg/24 hr (up to See Rx Instructions .Route .COMPLEX 05/22/22 03/20/24 8 years) 52 mg intrauterine device (Mirena) Allergies Allergy/AdvReac Type Severity Reaction Status Date / Time morphine AdvReac Intermediate SEVERE Verified 03/20/24 17:17 ITCHING AND RED RASH nitrofurantoin AdvReac Mild Rash Verified 03/20/24 17:17 Dried Fruit AdvReac Mild Itching Uncoded 03/20/24 17:17 [place] AdvReac Mild Itching Uncoded 03/20/24 17:17 Review of Systems Review of Systems: Pertinent positives per HPI. Patient denies any fever, chills, rash, headache, visual changes, dizziness, cough, runny nose, sore throat, shortness of breath, chest pain, palpitations, nausea, vomiting, diarrhea, constipation, abdominal pain, or any urinary issues. [facility], LAT[facility] Past Medical History Medical History Graves' disease History of atrial fibrillation 1 episode for 2 days due to hyperthyroidism Hyperthyroidism Surgical History Surgical History History of delivery History of tonsillectomy age 13 Family History Family History Mother Family history of cardiovascular disease Diabetes mellitus Family history of arthritis Family history of thyroid disease Hypertension Adrenal gland cancer Father Diabetes mellitus Cerebrovascular accident Grandparent Acute myocardial infarction, Onset Age: 74 Cerebrovascular accident, Onset Age: 75 Depression Social History Social History Smoking status: Never smoker Second hand tobacco smoke exposure: No Alcohol intake: current Substance use: never Spiritual care concerns: No Comments At the time of my signature, I reviewed and agree with the nursing past medical, surgical, social, and family history. There is no relevant family history pertinent to the patient complaint. Exam Narrative: General: Well-developed, well nourished, in no apparent distress Head: Normocephalic, atraumatic. Chest wall: Tenderness to palpation over the right lateral lower ribs-faint bruising noted Cardio: Regular rate and rhythm, s1 and s2 normal, no murmur appreciated. Resp: Clear to auscultation bilaterally, no rhonchi, rales, wheezing or rubs. Extremities: No deformity, no edema, no cyanosis, capillary refill less than 2 seconds, peripheral pulses palpable and strong. Integumentary: [place], warm, and dry, intact without lesion, no rashes. Course Course Emergency Course: Portions of this record may have been created with voice recognition software. Level of Care: Express Care Visit Vital Signs Vital signs: Vital Signs Temperature 36.6 C 03/20/24 17:02 Pulse Rate 71 03/20/24 17:02 Respiratory Rate 18 03/20/24 17:02 Blood Pressure 132/75 03/20/24 17:02 Pulse Oximetry 100 03/20/24 17:02 Oxygen Delivery Room Air 03/20/24 17:02 Temperature 36.6 C 03/20/24 17:02 Pulse Rate 71 03/20/24 17:02 Respiratory Rate 18 03/20/24 17:02 Blood Pressure 132/75 03/20/24 17:02 Pulse Oximetry 100 03/20/24 17:02 Oxygen Delivery Room Air 03/20/24 17:02 Vital
== END 2024-03-20 17:56 | disposition home or self-care (01) ==
PROVIDERS: Emergency Provider Nurse Practitioner Family; PCP Nurse Practitioner Family
DX: R07.89 Other chest pain (principal); E05.00 Thyrotoxicosis with diffuse goiter without thyrotoxic crisis or storm
CPT/HCPCS: 71100; 99213; G0463